=== PATIENT | male | born 1955 | race Caucasian/White ===

== ENCOUNTER 2017-03-14 08:28 | Observation (INO) | payer OTHER ==
[~2017-03-14] VITALS: Ht 193 cm; Wt 165.4 kg
[2017-03-14 08:42] LABS: CREATININE 0.6 mg/dL (0.6-1.3); POTASSIUM 3.6 mEq/L (3.7-5.4)
[2017-03-14 08:42] LABS: POINT-OF-CARE METER ID UU13113702
[2017-03-14 08:54] LABS: EOSINOPHIL (%) 1.2 % (0-5); EOSINOPHIL COUNT 0.1 K/uL (0-0.3); HEMATOCRIT 41.7 % (38.0-50.0); IMMATURE GRANULOCYTE (%) 0.5 % (0.0-0.7); IMMATURE GRANULOCYTE COUNT 0.1 K/uL; INSTRUMENT ABS NEUTROPHIL CT 9.5 K/uL; LYMPHOCYTE COUNT 1.8 K/uL (1.0-2.8); MCH 29.6 PG (29.0-34.0); MCHC 33.1 G/DL (30.0-36.0); MCV 89.3 FL (86-99); MEAN PLAT.VOLUME 11.2 uM^3 (9.0-12.4); MONOCYTE (%) 4.4 % (3-12); MONOCYTE COUNT 0.5 K/uL (0-0.8); NEUTROPHIL (%) 78.9 % (45-76); NEUTROPHIL COUNT 9.5 K/uL (1.8-6.4); PLATELET COUNT 261 K/uL (156-360); RBC DIS.WIDTH-CV 12.9 % (11.8-14.6); RBC DIS.WIDTH-SD 42.5 % (39-53); RED BLOOD COUNT 4.67 M/uL (4.00-5.50); WHITE BLOOD COUNT 12.1 K/uL (4.1-10.2)
[2017-03-14 09:09] LABS: CHLORIDE 130 mEq/L (99-109); SODIUM 147 mEq/L (136-147)
[2017-03-14 09:11] LABS: GLUCOSE 88 mg/dL (70-99)
[2017-03-14 09:15] LABS: GFR ESTIMATE (CALCULATED) > 59 mL/min/; UREA NITROGEN (BUN) 6 mg/dL (9-23)
[2017-03-14 09:16] LABS: TROP-I INTERPRETATION NEGATIVE; TROPONIN-I < 0.01 ng/mL (0.0-0.30)
[2017-03-14 09:16] LABS: POTASSIUM 1.7 mEq/L (3.7-5.4)
[2017-03-14 09:17] LABS: ANION GAP 5 MEQ/L (2-14)
[2017-03-14 10:01] LABS: SODIUM 141 mEq/L (136-147)
[2017-03-14 10:04] LABS: ANION GAP 11 MEQ/L (2-14); CHLORIDE 110 mEq/L (99-109); GLUCOSE 151 mg/dL (70-99); POTASSIUM 3.7 mEq/L (3.7-5.4)
[2017-03-14 10:07] LABS: GFR ESTIMATE (CALCULATED) > 59 mL/min/
[2017-03-14 10:08] LABS: UREA NITROGEN (BUN) 12 mg/dL (9-23)
[2017-03-14] MEDS ORDERED: LASIX20 MG PO (13:27)
[2017-03-14] MEDS ORDERED: MEVACOR20 MG PO (13:28)
[2017-03-14] MEDS ORDERED: FLONASE ALLERG9.9 ML BOTH NARES (13:29)
[2017-03-14] MEDS ORDERED: NORVASC5 MG PO (13:29)
[2017-03-14] MEDS ORDERED: LITE COAT ASPI325 M1 PO (13:29)
[2017-03-14] MEDS ORDERED: ADVIL200 MG PO (13:30)
[2017-03-14 13:44] VITALS: BP 132/62
[2017-03-14] MEDS ORDERED: OSTEO BI-FLEX1 EAC1 PO (13:59)
[2017-03-14] MEDS ORDERED: DAILY VALUE1 EACH PO (13:59)
[2017-03-14 15:37] LABS: TROP-I INTERPRETATION NEGATIVE; TROPONIN-I 0.02 ng/mL (0.0-0.30)
[2017-03-14 20:00] VITALS: BP 142/78
[2017-03-14 21:49] LABS: TROP-I INTERPRETATION NEGATIVE; TROPONIN-I 0.01 ng/mL (0.0-0.30)
[2017-03-15] VITALS: BP 130/72
[2017-03-15 04:05] VITALS: BP 129/69
[2017-03-15 07:15] LABS: HEMATOCRIT 40.6 % (38.0-50.0); MCH 30.3 PG (29.0-34.0); MCHC 33.5 G/DL (30.0-36.0); MCV 90.4 FL (86-99); MEAN PLAT.VOLUME 11.4 uM^3 (9.0-12.4); PLATELET COUNT 235 K/uL (156-360); RBC DIS.WIDTH-CV 13.2 % (11.8-14.6); RBC DIS.WIDTH-SD 43.6 % (39-53); RED BLOOD COUNT 4.49 M/uL (4.00-5.50); WHITE BLOOD COUNT 14.9 K/uL (4.1-10.2)
[2017-03-15 07:41] LABS: ANION GAP 8 MEQ/L (2-14); CHLORIDE 109 MEQ/L (99-109); GFR ESTIMATE (CALCULATED) > 59 mL/min/; POTASSIUM 3.6 MEQ/L (3.7-5.4); SAMPLE HEMOLYSIS CHECK 0; SAMPLE ICTERIC CHECK 0; SAMPLE LIPEMIA CHECK 0; SODIUM 143 MEQ/L (136-147); UREA NITROGEN (BUN) 16 mg/dL (9-23)
[2017-03-15 07:48] LABS: GLUCOSE 106 mg/dL (70-99)
[2017-03-15 07:53] VITALS: BP 131/5; BP 131/56
[2017-03-15] MEDS ORDERED: ANTIVERT25 MG PO (12:17)
[2017-03-15 12:27] VITALS: BP 131/67
[2017-03-15 12:39] LABS: ADD MIUA? YES; BILIRUBIN NEGATIVE; BLOOD NEGATIVE; COLOR YELLOW ((YELLOW)); GLUCOSE (STRIP) NEGATIVE; KETONES NEGATIVE; LEUKOCYTES NEGATIVE; NITRITE NEGATIVE; PROTEIN (STRIP) NEGATIVE; SPECIFIC GRAVITY 1.029 (1.000-1.030)
[2017-03-15 12:50] LABS: BACTERIA NONE SEEN /HPF; EPITHELIAL CELLS RARE /HPF; MUCUS 4+ /LPF; RED BLOOD CELLS 0-5 /HPF (0-5); UCUL ADDED? NO; WHITE BLOOD CELLS 0-5 /HPF (0-5)
== END 2017-03-15 14:30 | disposition home or self-care (01) ==
LOC: EME 08:28 → EDOF 12:41 → 5WEST 13:43
PROVIDERS: Emergency Medicine; Hospitalist
DX: H81.20 Vestibular neuronitis, unspecified ear (principal); E86.0 Dehydration; E87.6 Hypokalemia; E87.2 Acidosis; I10 Essential (primary) hypertension; E78.5 Hyperlipidemia, unspecified; E66.01 Morbid (severe) obesity due to excess calories; Z87.891 Personal history of nicotine dependence
CPT/HCPCS: 70450; 70551; 71020; 80047; 80048; 80048 91; 81003; 82948; 83605; 84484; 85025; 85027; 93005; 99281; 99285; G0378; J1644; J2060; J2405; J3480; J7030

== ENCOUNTER 2018-03-04 12:23 | Day surgery (SDC) | payer OTHER ==
[~2018-03-04] VITALS: Ht 193 cm; Wt 166.4 kg
[~2018-03-04 12:23] MED LIST: ADVIL200 MG PO; ANTIVERT25 MG PO; DAILY VALUE1 EACH PO; ENDOCET 7.5-321 EACH PO; FLONASE ALLERG9.9 ML BOTH NARES; LASIX20 MG PO; LITE COAT ASPI325 M1 PO; LOTREL 5/101 CAPSULE PO; MEVACOR20 MG PO; OSTEO BI-FLEX1 EAC1 PO; POTASSIUM CHLO20 ME2 PO; VIAGRA50 MG PO; VOLTAREN-XR100 MG PO
[2018-03-04 13:15] VITALS: BP 160/86
[2018-03-04 20:50] VITALS: BP 114/56
[2018-03-04 23:50] VITALS: BP 105/52
[2018-03-05 04:11] VITALS: BP 108/55
[2018-03-05 08:13] VITALS: BP 118/56
[2018-03-05 11:52] VITALS: BP 103/58
[2018-03-05 15:42] VITALS: BP 93/45
[2018-03-05 18:35] LABS: TROP-I INTERPRETATION NEGATIVE; TROPONIN-I 0.02 ng/mL (0.0-0.30)
[2018-03-05 19:05] VITALS: BP 104/54
[2018-03-05 23:16] VITALS: BP 105/59
[2018-03-06 03:09] VITALS: BP 100/53
[2018-03-06 06:18] LABS: CHLORIDE 106 MEQ/L (99-109); CREATININE 0.8 MG/DL (0.6-1.3); GFR ESTIMATE (CALCULATED) > 59 mL/min/ (58.99-99999); GLUCOSE 93 mg/dL (70-99); POTASSIUM 3.9 MEQ/L (3.7-5.4); SODIUM 140 MEQ/L (136-147); UREA NITROGEN (BUN) 14 mg/dL (9-23)
[2018-03-06 08:04] VITALS: BP 112/61
[2018-03-06 11:18] VITALS: BP 109/59
== END 2018-03-06 15:37 | disposition home or self-care (01) ==
LOC: SDC 12:23 → 2SOUTH 18:57 → 3EAST 18:57 → ENRESERV 19:09 → 3EAST 20:46
PROVIDERS: Neurological Surgery; Physician Assistant Surgical
PROC: 01NB0ZZ Release Lumbar Nerve, Open Approach (ICD-10-PCS; principal; 2018-03-04)
DX: M48.062 Spinal stenosis, lumbar region with neurogenic claudication (principal); M47.816 Spondylosis without myelopathy or radiculopathy, lumbar region; M51.37 Other intervertebral disc degeneration, lumbosacral region; E88.2 Lipomatosis, not elsewhere classified; R26.89 Other abnormalities of gait and mobility; G89.29 Other chronic pain; M54.5 Low back pain; E66.01 Morbid (severe) obesity due to excess calories; Z68.41 Body mass index [BMI] 40.0-44.9, adult; I95.9 Hypotension, unspecified; I10 Essential (primary) hypertension; E78.5 Hyperlipidemia, unspecified; Z87.891 Personal history of nicotine dependence; Z79.82 Long term (current) use of aspirin
CPT/HCPCS: 71045; 72020; 76000; 80048; 82948; 84484; 93005; G0378; J0131; J0690; J1170; J2250; J2405; J2710; J2930; J3010; J3370; J3480; J7030; J7643; S0020